=== PATIENT | male | born 1965 | race Caucasian/White ===

== ENCOUNTER → 2016-09-16 | Outpatient (CLI) | payer OTHER ==
[~2016-09-16] MED LIST: OMEP20TA PO; TRIA0.1L TOP
--- NOTE | 2016-09-16 16:02 | DIAGNOSTIC IMAGING REPORT ---
TWO VIEW CHEST CLINICAL HISTORY: Viral upper respiratory infection. Cough. FINDINGS: PA and lateral chest radiographs are compared to study dated 06/26/2009. The cardiomediastinal silhouette is unremarkable. There is mild chronic elevation of left hemidiaphragm. The lungs and pleural spaces are clear. There is no pneumothorax. The bony thorax appears intact. IMPRESSION: No acute cardiopulmonary abnormality. Electronically signed by: Rory Chaudhry M.D. 09/16/2016 4:01 PM Dictated Date/Time: 09/16/2016 4:00 PM
== END | disposition home or self-care (01) ==
LOC: C.RADPV 15:47
PROVIDERS: ATTEND Family Medicine
DX: J06.9 Acute upper respiratory infection, unspecified (principal); R05 Cough